=== PATIENT | male | born 1960 | race Caucasian/White ===

== ENCOUNTER 2018-01-03 03:48 | Emergency (ER) | payer OTHER ==
--- NOTE | 2018-01-03 04:00 | EDPHY ---
H & P Stated Complaint: Painful back spasms since 2100 tonight. Time Seen by Provider: 01/03/18 03:59 HPI/ROS: HPI CHIEF COMPLAINT: Back pain HISTORY OF PRESENT ILLNESS: Patient very pleasant 58-year-old male he is otherwise healthy no significant medical history does not take any daily medications he is here on work from [place], he will be here till he took a fall around 9:00 p.m. Last night he tripped and fell on outstretched hand fell forward. States around midnight he is developing some low back pain. He did not fall on his back. Denies any abdominal pain chest pain or shortness of breath. Simple mechanical trip and fall without injury however at midnight he developed some back pain that has been persistent most of the night. Describes paravertebral on lumbar region on the left side sharp stabbing it goes down his left gluteus slightly but not down his leg. It is worse with certain positions. He could not sleep so decided come the room for further evaluation of this Past Medical History: No significant medical history Past Surgical History: No significant surgical history Social History: Lives in [facility] here on work, denies daily use drugs alcohol tobacco. Family History: Noncontributory ROS REVIEW OF SYSTEMS: A comprehensive 10 point review of systems is otherwise negative aside from elements mentioned in the history of present illness. Exam Constitutional appears well nontoxic no acute distress triage nursing summary reviewed, vital signs reviewed, awake/alert. Eyes normal conjunctivae and sclera, EOMI, PERRLA. HENT normal inspection, atraumatic, moist mucus membranes, no epistaxis, neck supple/ no meningismus, no raccoon eyes. Respiratory clear to auscultation bilaterally, normal breath sounds, no respiratory distress, no wheezing. Cardiovascular rate normal, regular rhythm, no murmur, no edema, distal pulses normal. Gastrointestinal soft, non-tender, no rebound, no guarding, normal bowel sounds, no distension, no pulsatile mass. Genitourinary no CVA tenderness. Musculoskeletal back exam: Nontender on exam, however patient complains of pain paravertebral lumbar region left-sided, no leg weakness, no saddle anesthesia no midline vertebral tenderness, full range of motion, no calf swelling, no tenderness of extremities, no meningismus, good pulses, neurovascularly intact. Skin pink, warm, & dry, no rash, skin atraumatic. Neurologic awake, alert and oriented x 3, AAOx3, moves all 4 extremities equally, motor intact, sensory intact, CN II-XII intact, normal cerebellar, normal vision, normal speech. Psychiatric normal mood/affect. Heme/Lymph/Immune no lymphadenopathy. Differential Diagnosis: Includes but is not limited to in a particular order sciatica, annular tear, disc herniation, compression fracture, no signs of cauda equina Medical Decision Making: Plan for this patient x-ray lumbar spine, I offered patient IV establishment with pain medication however he drove here and would like to drive home he would like to stay away from narcotics or sedation medication. He is fine with steroids and Toradol. Re-evaluation: 0453; re-examination at this time this patient is resting comfortably no acute distress. Feeling much better after IV Decadron IV Toradol. X-ray has been reviewed no evidence of acute fracture. Degenerative disc disease present. I have given him a copy of his x-ray to take back to him when he goes back to [place] Prescriptions were provided for anti-inflammatory pain medicine, Salcha for severe pain and steroids. He understands return emergency room if he has any worsening symptoms questions concerns. At this time there is no evidence of cauda equina. Most likely he has nerve root compression early sciatica. Source: Patient - Personal History Current Tetanus/Diphtheria Vaccine: Unsure Current Tetanus Diphtheria and Acellular Pertussis (TDAP): Unsure - Medical/Surgical History Hx Asthma: No Hx Chronic Respiratory Disease: No Hx Diabetes: No Hx Cardiac Disease: No Hx Renal Disease: No Hx Cirrhosis: No Hx Alcoholism: No Hx HIV/AIDS: No Hx Splenectomy or Spleen Trauma: No Other PMH: Denies. - Social History Smoking Status: Never smoked Constitutional: Initial Vital Signs Temperature (C) 36.3 C 01/03/18 03:50 Heart Rate 85 01/03/18 03:50 Respiratory Rate 17 01/03/18 03:50 Blood Pressure 154/83 H 01/03/18 03:50 O2 Sat (%) 95 01/03/18 03:50 O2 Delivery Mode Room Air Allergies/Adverse Reactions: No Known Allergies Allergy (Unverified 01/03/18 03:54) Home Medications: Medication Instructions Recorded Dexamethasone [Decadron 4 MG (*)] 8 mg PO DAILY #4 tab 01/03/18 Hydrocodone/APAP 5/325 [Salcha 1 - 2 tab PO Q4H PRN #10 tab 01/03/18 5/325] Ibuprofen [Motrin (*)] 800 mg PO Q6-8PRN #14 tab 01/03/18 Medical Decision Making - Data Points Laboratory Results: Laboratory Results 01/03/18 04:10 01/03/18 04:10 01/03/18 01/03/18 04:10 04:10 WBC 8.36 10^3/uL 10^3/uL (3.80-9.50) RBC 5.29 10^6/uL 10^6/uL (4.40-6.38) Hgb 15.6 g/dL g/dL (13.7-17.5) Hct 45.0 % % (40.0-51.0) MCV 85.1 fL fL (81.5-99.8) MCH 29.5 pg pg (27.9-34.1) MCHC 34.7 g/dL g/dL (32.4-36.7) RDW 13.3 % % (11.5-15.2) Plt Count 326 10^3/uL 10^3/uL (150-400) MPV 8.8 fL fL (8.7-11.7) Neut % (Auto) 67.8 % % (39.3-74.2) Lymph % (Auto) 20.3 % % (15.0-45.0) [place] % (Auto) 6.2 % % (4.5-13.0) Eos % (Auto) 4.5 % % (0.6-7.6) Baso % (Auto) 0.7 % % (0.3-1.7) Nucleat RBC Rel Count 0.0 % % (0.0-0.2) Absolute Neuts (auto) 5.66 10^3/uL 10^3/uL (1.70-6.50) Absolute Lymphs (auto) 1.70 10^3/uL 10^3/uL (1.00-3.00) Absolute Monos (auto) 0.52 10^3/uL 10^3/uL (0.30-0.80) Absolute Eos (auto) 0.38 10^3/uL 10^3/uL (0.03-0.40) Absolute Basos (auto) 0.06 10^3/uL 10^3/uL (0.02-0.10) Absolute Nucleated RBC 0.00 10^3/uL 10^3/uL (0-0.01) Immature Gran % 0.5 % % (0.0-1.1) Immature Gran # 0.04 10^3/uL 10^3/uL (0.00-0.10) Sodium 143 mEq/L mEq/L (135-145) Potassium 4.7 mEq/L mEq/L (3.5-5.2) Chloride 106 mEq/L mEq/L (97-110) Carbon Dioxide 24 mEq/l mEq/l (22-31) Anion Gap 13 mEq/L mEq/L (8-16) BUN 14 mg/dL mg/dL (7-23) Creatinine 0.9 mg/dL mg/dL (0.7-1.3) Estimated GFR > 60 Glucose 98 mg/dL mg/dL (70-100) Calcium 9.4 mg/dL mg/dL (8.5-10.4) Medications Given: Discontinued Medications Dexamethasone (Decadron Injection) 10 mg IVP EDNOW ONE Stop: 01/03/18 04:07 Last Admin: 01/03/18 04:20 Dose: 10 mg Ketorolac Tromethamine (Toradol) 15 mg IVP EDNOW ONE Stop: 01/03/18 04:07 Last Admin: 01/03/18 04:19 Dose: 15 mg Departure - Departure Disposition: Home, Routine, Self-Care Clinical Impression: Sciatica Qualifiers: Laterality: left Qualified Code(s): M54.32 - Sciatica, left side Condition: Good Instructions: Sciatica (ED), Lumbar Radiculopathy (ED) Additional Instructions: 1. Take it easy. 2. Anti-inflammatory pain medicine for pain control. 3. If you have severe pain take Salcha. 4. Follow up with her primary care doctor in [facility]. 5. Return emergency room if you have severe pain questions or concerns. Referrals: NONE *PRIMARY CARE P,. [Primary Care Provider] - As per Instructions Prescriptions: Dexamethasone [Decadron 4 MG (*)] 8 mg PO DAILY #4 tab Hydrocodone/APAP 5/325 [Salcha 5/325] 1 - 2 tab PO Q4H PRN #10 tab PRN Reason: Pain, Moderate Ibuprofen [Motrin (*)] 800 mg PO Q6-8PRN #14 tab
[2018-01-03] MEDS ORDERED: DEXAMETHASONE 10 MG/ML VIAL IVP ONE (04:06)
[2018-01-03] MEDS ORDERED: KETOROLAC 15 MG/1 ML SDV IVP ONE (04:06)
[2018-01-03 04:17] LABS: PLATELET COUNT 326 10^3/uL (150-400)
[2018-01-03 05:08] VITALS: BP 118/76
== END 2018-01-03 05:08 | disposition home or self-care (01) ==
DX: M54.32 Sciatica, left side (principal)
CPT/HCPCS: 96374; J1100; J1885